=== PATIENT | female | born 1930 ===

== ENCOUNTER 2016-11-05 09:00 | Inpatient (IN) | payer MEDICARE ==
[2016-11-05] MEDS ORDERED: Morphine 4 mg/ml ISec IVP STA (09:23)
[2016-11-05] MEDS ORDERED: Sodium Chloride 0.9% 1,000 ML IV SCH (09:30)
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
[2016-11-05 09:52] LABS: BASO # 0.02 K/mm3 (0.0-2.0); BASO % 0.3 % (0.0-3.0); EOS # 0.1 (0.0-0.7); EOS % 1.6 % (1.5-5.0); GRAN # 6.66 (1.4-6.5); GRAN % 83.6 % (50.0-68.0); HEMATOCRIT 38.8 % (36.0-48.0); LYMPH # 0.8 (1.2-3.4); LYMPH % 9.9 % (22.0-35.0); MEAN CELL VOLUME 95.3 fl (80.0-105.0); MEAN CORPUSCULAR HGB CONC 32.5 g/dl (31.0-37.0); MEAN PLATELET VOLUME 10.7 fl (7.0-11.0); MONO # 0.4 (0.1-0.6); MONO % 4.6 % (1.0-6.0); RED CELL DISTRIBUTION WIDTH 14.7 % (11.5-14.5)
[2016-11-05 09:59] LABS: URINE BILIRUBIN NEGATIVE (NEGATIVE); URINE BLOOD TRACE-INTACT (NEGATIVE); URINE GLUCOSE (UA) NEGATIVE (NEGATIVE); URINE KETONE NEGATIVE (NEGATIVE); URINE LEUKOCYTE ESTERASE NEGATIVE Leu/uL (NEGATIVE); URINE PROTEIN 30 mg/dL (<30 mg/dL); URINE UROBILINOGEN 0.2 E.U./dL (<1 E.U./dL)
[2016-11-05 10:00] LABS: ALB/GLOB RATIO 1.3 (1.1-1.8); ALKALINE PHOSPHATASE 66 U/L (38-133); ALT/SGPT 25 U/L (7-56); AST/SGOT 23 U/L (15-39); BILIRUBIN,TOTAL 1.2 mg/dL (0.2-1.3); BLOOD UREA NITROGEN 16 mg/dL (7-21); CALCIUM 9.3 mg/dL (8.4-10.5); CARBON DIOXIDE 24 mmol/L (21-33); CHLORIDE 109 mmol/L (98-107); GFR AFRICAN-AMERICAN > 60; GLUCOSE,RANDOM 116 mg/dL (70-110); POTASSIUM 4.3 mmol/L (3.6-5.0); SODIUM 143 mmol/L (132-148)
[2016-11-05 10:00] LABS: URINE APPEARANCE CLEAR (CLEAR); URINE COLOR YELLOW (YELLOW)
[2016-11-05 10:02] LABS: INR 1.06 (0.93-1.08); PARTIAL THROMBOPLASTIN TIME 28.5 Seconds (23.7-30.8)
[2016-11-05 10:22] LABS: URINE RBC 0 - 2 /hpf (0-2)
[2016-11-05 10:23] LABS: URINE BACTERIA FEW (NEG); URINE EPITHELIAL CELLS 0 - 2 /hpf (0-5)
--- NOTE | 2016-11-05 10:39 | RAD ---
PROCEDURE: Left Hip X-ray Radiographs. HISTORY: lt. hip injury and pain COMPARISON: None. FINDINGS: BONES: Evaluation limited. No external rotation view supplied. Patient likely unable to cooperate for external rotation. Suspect nondisplaced fracture of left femoral neck. Recommend further radiographic evaluation. No other fracture identified. JOINTS: Normal. SOFT TISSUES: Normal. OTHER FINDINGS: None. IMPRESSION: Suspicious for left femoral neck fracture, nondisplaced. Recommend further radiographic evaluation. Consider computed tomography.
--- NOTE | 2016-11-05 10:42 | RAD ---
PROCEDURE: Radiographs of the pelvis. HISTORY: fall with lt. hip pain COMPARISON: None. FINDINGS: BONES: Pelvic Bones: No fracture Hips: Suspect nondisplaced fracture left femoral neck. Evaluation limited. JOINTS: Sacroiliac Joints: Unremarkable. Pubic Symphysis: Unremarkable. OTHER FINDINGS: None. IMPRESSION: Probable nondisplaced fracture left femoral neck. No other fracture identified.
--- NOTE | 2016-11-05 10:52 | RAD ---
PROCEDURE: Left Knee Radiographs. HISTORY: Pain. COMPARISON: None. FINDINGS: BONES: Normal. No fracture. JOINTS: Normal. No osteoarthritis. JOINT EFFUSION: None. OTHER FINDINGS: None. IMPRESSION: Normal radiographs of the left knee.
--- NOTE | 2016-11-05 10:54 | RAD ---
HISTORY: medical clearance COMPARISON: No prior. FINDINGS: LUNGS: Mild peribronchial thickening. No evidence of pneumonia PLEURA: No significant pleural effusion identified, no pneumothorax apparent. CARDIOVASCULAR: Mild cardiomegaly OSSEOUS STRUCTURES: No significant abnormalities. VISUALIZED UPPER ABDOMEN: Normal. OTHER FINDINGS: None. IMPRESSION: Mild peribronchial thickening. No evidence of pneumonia
--- NOTE | 2016-11-05 11:58 | CT ---
PROCEDURE: CT of the left hip without contrast HISTORY: lt. femoral neck fracture, nondisplaced? COMPARISON: TECHNIQUE: CT of the left hip was performed in the axial plane with sagittal and coronal reconstructions. FINDINGS: There is a nondisplaced impacted subcapital fracture of the left hip. This is best seen on coronal image 36. There are no pelvic fractures. There is no soft tissue hematoma or edema. IMPRESSION: Nondisplaced impacted subcapital fracture of the left hip
--- NOTE | 2016-11-05 13:22 | CARD ---
APPROVED REPORT EKG Measurement Heart [id number] <Conclusion> Sinus rhythm with premature atrial complexes Left axis deviation Moderate voltage criteria for LVH, may be normal variant Abnormal ECG
[2016-11-05 14:25] VITALS: BMI 28.3
[2016-11-05] MEDS ORDERED: Pneumococcal 23-Valent Vaccine IM ONE (14:28)
[2016-11-05] MEDS ORDERED: Nitroglycerin 2% Ointment Foilpak UD TOP PRN (16:20)
[2016-11-05] MEDS: Dextrose 5%/0.45% NS 1,000 ML IV SCH (21:45)
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
[2016-11-06] MEDS: Levothyroxine 112 MCG TAB PO SCH (05:22)
[2016-11-06 06:51] LABS: HEMATOCRIT 36.2 % (36.0-48.0); MEAN CELL VOLUME 96.5 fl (80.0-105.0); MEAN CORPUSCULAR HEMOGLOBIN 31.2 pg (25.0-35.0); MEAN CORPUSCULAR HGB CONC 32.3 g/dl (31.0-37.0); MEAN PLATELET VOLUME 11.1 fl (7.0-11.0); RED CELL DISTRIBUTION WIDTH 14.9 % (11.5-14.5); WHITE BLOOD COUNT 8.6 10^3/ul (4.5-11.0)
[2016-11-06] MEDS ORDERED: Aspirin 325 mg EC Tablets PO SCH (10:00)
[2016-11-06] MEDS ORDERED: Propofol 10 mg/ml Inj (20 ML) ONE (13:26)
[2016-11-06] MEDS ORDERED: Labetalol 5 mg/ml Inj 20ML ONE ×2 (13:37→17:21)
--- NOTE | 2016-11-06 13:49 | PN ---
DATE: 11/06/2016 SUBJECTIVE: This 86-year-old female was examined at her bedside. Her case was reviewed with herself, family and her nurse, Marybel Dyer, registered nurse. The patient is awaiting OR for repair of left hip fracture and is being treated for comorbidities including chronic hypertension, hyperlipidemia, hypothyroidism and degenerative arthritis. The patient denies any fever, chills, chest pain, shortness of breath, nausea or vomiting and is in a normal sinus rhythm on a lunchroom monitor. PHYSICAL EXAMINATION: VITAL SIGNS: At present showed temperature 98.9, respirations 20, pulse 58, blood pressure 142/56 with a pulse ox of 98% on room air. HEENT: Head is normocephalic and atraumatic. Eyes: No icterus. Ears: Clear. Throat: Non-injected. NECK: Supple. HEART: Regular. S1 and S2. No pathological rubs, murmurs or gallops. LUNGS: Clear to auscultation. No wheezing. No rhonchi. ABDOMEN: Soft and nontender. No palpable organomegaly. EXTREMITIES: No clubbing, no cyanosis and no edema. SKIN: Without rash. NEUROLOGICAL: Unchanged. PSYCHOLOGICAL: Alert and oriented x3. VASCULAR: Both legs are warm to touch. LABORATORY DATA: Show white count 8600, hemoglobin 11.7, hematocrit 36.2 and platelets are 183,000. PT/INR 1.06. PTT 28.5. Sodium is 143, potassium 4.3, chloride 109, bicarbonate 24, BUN 16, creatinine 0.7 and random blood sugar is 116. Her bilirubin is 1.2, AST 23, ALT 25 and alkaline phosphatase 66. EKG showed normal sinus rhythm with non-specific ST-T wave changes. IMPRESSION: An 86-year-old female status post a slip and fall with a new left hip fracture and comorbidities including chronic hypertension, history of old stroke, history of transient ischemic attacks in the past, also with hyperlipidemia, hypothyroidism, degenerative arthritis and deconditioning. PLAN: At present is to maintain the patient n.p.o. in preparation for OR. She is ordered to receive antiembolism SCDs, mechanical stockings. She is ordered to have physical therapy for evaluation of bedside therapy and postoperative hip repair surgery. She will be maintained on medication including D5 0.9 saline at 70 mL per hour, Ecotrin 81 mg p.o. daily, Colace 100 mg p.o. b.i.d., Cozaar 100 mg p.o. daily, lactulose 20 g p.o. at bedtime p.r.n. constipation, metoprolol tartrate 12.5 mg p.o. b.i.d., Norvasc 5 mg p.o. daily, nitroglycerin to chest wall 1 inch q. 4 hours p.r.n. accelerated hypertension, if systolic blood pressure should be greater than 160 or diastolic blood pressure greater than 100, Os-Alfred with vitamin D 500 mg p.o. daily, Pepcid 20 mg p.o. at bedtime, Percocet 5/325 mg one p.o. q. 6 hours p.r.n. severe pain, Synthroid 112 mcg p.o. daily, Zofran 4 mg IV q. 6 hours p.r.n. nausea or vomiting. She was instructed by myself with beside incentive spirometry, which she performs well. Her diet will be advanced postoperatively by Surgery, Dr. Zendejas, and ultimate plan will be to have social service arrange for a physical therapy rehab near [facility] where the patient and family reside. All of this was explained in detail to the patient, nursing, social service and family, and approximately sixty minutes were spent in the care and management of this patient today. All questions were answered. Elvira Kenney MD MTDD
[2016-11-06] MEDS ORDERED: Bupivacaine 0.5% Inj(30mL) ONE (14:02)
[2016-11-06] MEDS ORDERED: Rocuronium 10 mg/ml (5 ml) ONE (15:08)
[2016-11-06] MEDS ORDERED: Neostigmine Methylsulfate 3mg/3ml Syringe IV ONE (16:21)
[2016-11-06] MEDS ORDERED: Labetalol 5 mg/ml Inj 20ML IVP PRN (16:58)
[2016-11-06] MEDS ORDERED: HYDROmorphone 0.5 mg/0.5 ml ISec IVP PRN (16:58)
[2016-11-06] MEDS ORDERED: Sodium Chloride 0.9% 1,000 ML IV SCH (17:00)
--- NOTE | 2016-11-06 17:04 | PCM.SURG1 ---
Surgeon's Initial Post Op Note - Surgeon's Notes Surgeon: Kiran Zendejas MD Pharmacy Graduate Intern: Halle Nazario PA-C Type of Anesthesia: General Endo Anesthesia Administered By: Lilliam Vail Pre-Operative Diagnosis: Left femoral neck fx Operative Findings: as above Post-Operative Diagnosis: same Operation Performed: Left hip bipolar hemiarthroplasty Specimen/Specimens Removed: femoral head Estimated Blood Loss: EBL {In ML}: 100 Blood Products Given: N/A Drains Used: No Drains Post-Op Condition: Fair Date of Surgery/Procedure: 11/06/16 Time of Surgery/Procedure: 17:04
[2016-11-06] MEDS ORDERED: Labetalol 5 mg/ml Inj 20ML IV ONE (17:23)
[2016-11-06] MEDS ORDERED: HYDROmorphone 0.5 mg/0.5 ml ISec ONE (17:39)
[2016-11-06] MEDS ORDERED: HYDROmorphone 0.5 mg/0.5 ml ISec IVP ONE (17:40)
--- NOTE | 2016-11-06 18:15 | RAD ---
PROCEDURE: Left Hip X-ray Radiographs. HISTORY: s/p hip bipolar, pt in PACU COMPARISON: 11/05/2016 FINDINGS: BONES: Status post total left hip arthroplasty. The pelvic ring is intact. No acute displaced fracture or dislocation. JOINTS: Bone alignment is normal SOFT TISSUES: There are postsurgical changes in the periarticular soft tissues. OTHER FINDINGS: None. IMPRESSION: Status post total left hip arthroplasty. No acute complications.
[2016-11-06] MEDS: Oxycodone/Acetaminophen 5/325 mg Tab PO PRN (19:48)
--- NOTE | 2016-11-06 20:37 | OP ---
PROCEDURE DATE: 11/06/2016 PREOPERATIVE DIAGNOSIS: Left hip subcapital femoral neck fracture. POSTOPERATIVE DIAGNOSIS: Left hip subcapital femoral neck fracture. PROCEDURE: Left hip hemiarthroplasty. SURGEON: Brando Zendejas MD FAMILY ASSISTANT: Segre Zavaleta PA-C, the physician payroll and benefits assistant. Ms. Zavaleta was completely present throughout the entire case and assisted in patient positioning, retraction, reduction of the hip as well as wound closure. TYPE OF ANESTHESIA: General. COMPLICATIONS: None. ESTIMATED BLOOD LOSS: 50 mL. IMPLANT: Biomet hemiarthroplasty hip. INDICATION FOR PROCEDURE: This is an 86-year-old female who [place] cruise [place] and [place] injuring the left hip. The patient complained of pain and inability to ambulate. Clinical and radiographic examination was consistent with the left femoral neck fracture. Recommendations were for a left hip hemiarthroplasty once the patient was medically optimized. The risks, benefits and alternatives of the procedure were discussed with the patient and informed consent was obtained. DESCRIPTION OF PROCEDURE: After the surgical site was finally identified in the preoperative holding area, the patient was taken to the operating room and placed supine on the operating table. After administration of general anesthesia, the patient received 2 g of Ancef IV. The patient was positioned in the lateral decubitus position with the left hip up towards the ceiling. Care was taken to make sure all bony prominences and nerves were well padded and protected. Venodyne boot was placed on the nonoperative extremity and the left lower extremity was prepped and draped in the usual sterile fashion. The bony landmarks were identified about the left proximal femur and approximately 10-cm curvilinear incision was made. Soft tissue was dissected sharply down to the fascia. The fascia was incised. Charnley retractor was placed, and at this point, the short external rotators were identified, tied and resected off of the proximal femur. T-type capsulotomy was performed and the hip was dislocated. The femoral head was removed and measured on the back table. At this point, the acetabulum was inspected for any debris or any fractures, satisfied, revision femoral neck resection was performed. At this point, the medullary canal of the proximal femur was reamed and broached sequentially to allow for 8 mm press-fit collared stem. With the trial stem in place, the calcar was planed and a trial neck and head was inserted and the hip was reduced. Hip was taken through range of motion, it was noted to be stable with approximately equal limb lengths. At this point, the hip was dislocated and the trial components were removed. The hip joint was pulse lavaged with antibiotic and saline solution. The bony surfaces were dried and the actual femoral stem was then impacted into place being careful to maintain the proper version. The actual head was then impacted over the stem and once again, the hip was reduced. Again, the hip was taken through range of motion and it was noted to be stable with approximately equal limb lengths. At this point, the hip joint was pulse lavaged with antibiotic saline solution and the capsule was repaired using #1 Vicryl sutures. The short external rotators were repaired using #1 Vicryl suture. The deep fascia was closed using #1 Vicryl suture. Subcutaneous tissue was closed using 0 Vicryl and 2-0 Vicryl suture and the skin was closed using aleyda. A sterile dressing was applied and an abduction pillow was placed. The patient was awakened from anesthesia and taken to the recovery room in stable condition. Brando Zendejas MD
[2016-11-06] MEDS: Dextrose 5%/0.45% NS 1,000 ML IV SCH (22:29)
[2016-11-06] MEDS: ceFAZolin 2 GM in Sodium Chloride 0.9% 100 ML IVPB SCH (22:39)
[2016-11-07] MEDS: ceFAZolin 2 GM in Sodium Chloride 0.9% 100 ML IVPB SCH (06:28)
[2016-11-07] MEDS: Levothyroxine 112 MCG TAB PO SCH (06:28)
[2016-11-07] MEDS: Oxycodone/Acetaminophen 5/325 mg Tab PO PRN ×3 (06:36→21:08)
[2016-11-07 06:48] LABS: BLOOD UREA NITROGEN 14 mg/dL (7-21); CALCIUM 8.2 mg/dL (8.4-10.5); CARBON DIOXIDE 24 mmol/L (21-33); CHLORIDE 105 mmol/L (98-107); GFR AFRICAN-AMERICAN > 60; GLUCOSE,RANDOM 148 mg/dL (70-110); POTASSIUM 3.8 mmol/L (3.6-5.0); SODIUM 137 mmol/L (132-148)
[2016-11-07 06:52] LABS: HEMATOCRIT 32.8 % (36.0-48.0); MEAN CELL VOLUME 95.3 fl (80.0-105.0); MEAN CORPUSCULAR HEMOGLOBIN 30.5 pg (25.0-35.0); MEAN PLATELET VOLUME 10.6 fl (7.0-11.0); RED CELL DISTRIBUTION WIDTH 14.6 % (11.5-14.5); WHITE BLOOD COUNT 9.1 10^3/ul (4.5-11.0)
[2016-11-07] MEDS: Calcium-Vit D 250 mg-125 Units Tab UD PO SCH (09:46)
--- NOTE | 2016-11-07 09:59 | CP.PCM.PN ---
Subjective - Date & Time of Evaluation Date of Evaluation: 11/07/16 Time of Evaluation: 09:57 - Subjective Subjective: Pt awake, alert. Tm 100 VSS L hip: abduction pillow in place NVI distally dressing clean and intact Hg 10.5 POD#1 DVT prophylaxis PT Objective - Vital Signs/Intake and Output Vital Signs (last 24 hours): Temp Pulse Resp BP Pulse Ox 100 F H 93 H 22 160/70 H 94 L 11/07/16 08:56 11/07/16 09:46 11/07/16 06:00 11/07/16 09:46 11/07/16 06:00 Intake and Output: 11/07/16 11/07/16 06:59 18:59 Intake Total 730 0 Output Total 100 125 Balance 630 -125 - Medications Medications: Current Medications Acetaminophen (Tylenol 325mg Tab) 650 mg PO Q6H PRN PRN Reason: Temperature greater than 101 Amlodipine Besylate (Norvasc) 5 mg PO DAILY [facility] Last Admin: 11/07/16 09:46 Dose: 5 mg Aspirin (Aspirin Chewable) 81 mg PO DAILY [facility] Last Admin: 11/07/16 09:41 Dose: 81 mg Atorvastatin Calcium (Lipitor) 10 mg PO HS [facility] Last Admin: 11/06/16 22:25 Dose: 10 mg Calcium/Vitamin D (Oscal-D 250 Mg-125 Units Tab) 1 tab PO DAILY [facility] Last Admin: 11/07/16 09:46 Dose: 1 tab Docusate Sodium (Colace) 100 mg PO BID [facility] Last Admin: 11/07/16 09:42 Dose: 100 mg Enoxaparin Sodium (Lovenox) 40 mg SC Q24H [facility] PRN Reason: Protocol Famotidine (Pepcid) 20 mg PO HS [facility] Last Admin: 11/06/16 22:25 Dose: 20 mg Dextrose/Sodium Chloride (Dextrose 5%/0.45% Ns 1000 Ml) 1,000 mls @ 70 mls/hr IV .[id number] [facility] Last Admin: 11/06/16 22:29 Dose: 70 mls/hr Lactulose (Enulose) 20 gm PO HS PRN PRN Reason: Constipation Levothyroxine Sodium (Synthroid) 112 mcg PO 0600 [facility] Last Admin: 11/07/16 06:28 Dose: 112 mcg Losartan Potassium (Cozaar) 100 mg PO DAILY [facility] Last Admin: 11/07/16 09:43 Dose: 100 mg Metoprolol Tartrate (Lopressor) 12.5 mg PO BID [facility] Last Admin: 11/07/16 09:45 Dose: 12.5 mg Nitroglycerin (Nitro-Bid 2% Oint) 1 ea TOP Q4H PRN PRN Reason: hypertension Ondansetron HCl (Zofran Inj) 4 mg IVP Q6H PRN PRN Reason: Nausea/Vomiting Oxycodone/Acetaminophen (Percocet 5/325 Mg Tab) 1 tab PO Q6H PRN PRN Reason: Pain, severe (8-10) Stop: 11/08/16 14:34 Last Admin: 11/07/16 06:36 Dose: 1 tab - Labs Labs: 11/07/16 06:31 11/07/16 06:31 PT 11.4 Seconds (9.9-11.8) 11/05/16 09:25 INR 1.06 (0.93-1.08) 11/05/16 09:25 APTT 28.5 Seconds (23.7-30.8) 11/05/16 09:25
--- NOTE | 2016-11-07 15:06 | PN ---
SUBJECTIVE: This 86-year-old female was examined at her bedside in the presence of her and her nurse, Marybel Dyer. The patient is status post left hip hemiarthroplasty by Dr. Zendejas on 11/06/2016. Presently, she is out of bed to chair. She is wearing SCD antiembolism stockings and she is eating her lunch. The patient denies any fever, chills, chest pain, shortness of breath and at present is receiving IV fluids and performing incentive spirometry. PHYSICAL EXAMINATION: VITAL SIGNS: T-max today has been 100 with respirations 20, pulse 69, blood pressure 160/70 and awake overnight monitor is showing normal sinus rhythm. Pulse ox is 94% on room air. HEENT: Head is normocephalic, atraumatic. Eyes: No icterus. Ears: Clear. Throat: Non-injected. NECK: Supple. HEART: Regular. S1 and S2. No pathological rubs, murmurs or gallops. LUNGS: Clear to auscultation. ABDOMEN: Soft, nontender. There is no palpable organomegaly. There is no rebound, no guarding, no tenderness. EXTREMITIES: No clubbing, no cyanosis, no edema. She is wearing SCD antiembolism stockings. VASCULAR: Legs warm to touch. LABORATORY DATA: Show white count 9,100, hemoglobin 10.5, hematocrit 32.8, platelets 170,000. Sodium 137, K 3.8, chloride 105, bicarbonate 24, BUN 14, creatinine 0.7, random blood sugar is 148. All liver function testing was normal including bilirubin of 1.2, AST 23, ALT 25, and alk phos 66. IMPRESSION: An 86-year-old female status post slip and fall where she sustained a left hip fracture that has been surgically repaired, now with postoperative anemia, comorbidities of chronic hypertension, hyperlipidemia, degenerative arthritis, hypothyroidism. PLAN: At present is to continue heart healthy soft bland diet. She continues on incentive spirometry, SCD antiembolism stockings and has an order for physical therapy for reconditioning and gait training. Medications will include Synthroid 112 mcg p.o. daily, Percocet 1 tablet p.o. q.6 hours p.r.n. severe pain, Tylenol 650 mg p.o. q.6 hours p.r.n. mild pain, Pepcid 20 mg p.o. at bedtime, Norvasc 5 mg p.o. daily, Lovenox 40 mg subcu q.24, metoprolol tartrate 12.5 mg p.o. b.i.d., Lipitor 10 mg p.o. at bedtime, lactulose 20 g p.o. at bedtime p.r.n. constipation, IV fluids will be lowered to D5 0.45 saline at 40 mL per hour, Cozaar 100 mg p.o. daily, Colace 100 mg p.o. b.i.d., and Ecotrin 81 mg p.o. daily. She is ordered to have hemoglobin, hematocrit in a.m. She is having her wound monitored daily by Dr. Zendejas from orthopedics. Ultimate plan will be for transfer to a rehab center near [facility] were the patient and family reside and all the above was discussed in detail with the patient, nursing, family, and co-consultants. Approximately sixty minutes were spent in the care and management of this patient today. Elvira Kenney MD DMITRI
[2016-11-07] MEDS: Dextrose 5%/0.45% NS 1,000 ML IV SCH (17:16)
[2016-11-07] MEDS: Enoxaparin 40 mg Syringe SC SCH (17:19)
--- NOTE | 2016-11-07 20:02 | CP.PCM.PN ---
Subjective - Date & Time of Evaluation Date of Evaluation: 11/07/16 Time of Evaluation: 20:02 - Subjective Subjective: draft constipationx 4 days Objective - Vital Signs/Intake and Output Vital Signs (last 24 hours): Temp Pulse Resp BP Pulse Ox 100 F H 69 22 140/62 94 L 11/07/16 08:56 11/07/16 17:17 11/07/16 06:00 11/07/16 17:17 11/07/16 06:00 Intake and Output: 11/07/16 11/08/16 18:59 06:59 Intake Total 240 Output Total 125 Balance 115 - Medications Medications: Current Medications Acetaminophen (Tylenol 325mg Tab) 650 mg PO Q6H PRN PRN Reason: Temperature greater than 101 Amlodipine Besylate (Norvasc) 5 mg PO DAILY [facility] Last Admin: 11/07/16 09:46 Dose: 5 mg Aspirin (Aspirin Chewable) 81 mg PO DAILY [facility] Last Admin: 11/07/16 09:41 Dose: 81 mg Atorvastatin Calcium (Lipitor) 10 mg PO HS [facility] Last Admin: 11/06/16 22:25 Dose: 10 mg Calcium/Vitamin D (Oscal-D 250 Mg-125 Units Tab) 1 tab PO DAILY [facility] Last Admin: 11/07/16 09:46 Dose: 1 tab Docusate Sodium (Colace) 100 mg PO BID [facility] Last Admin: 11/07/16 17:16 Dose: 100 mg Enoxaparin Sodium (Lovenox) 40 mg SC Q24H [facility] PRN Reason: Protocol Last Admin: 11/07/16 17:19 Dose: 40 mg Famotidine (Pepcid) 20 mg PO HS [facility] Last Admin: 11/06/16 22:25 Dose: 20 mg Dextrose/Sodium Chloride (Dextrose 5%/0.45% Ns 1000 Ml) 1,000 mls @ 40 mls/hr IV .Q24H [facility] Last Admin: 11/07/16 17:16 Dose: 40 mls/hr Lactulose (Enulose) 20 gm PO HS PRN PRN Reason: Constipation Levothyroxine Sodium (Synthroid) 112 mcg PO 0600 [facility] Last Admin: 11/07/16 06:28 Dose: 112 mcg Losartan Potassium (Cozaar) 100 mg PO DAILY [facility] Last Admin: 11/07/16 09:43 Dose: 100 mg Metoprolol Tartrate (Lopressor) 12.5 mg PO BID [facility] Last Admin: 11/07/16 17:17 Dose: 12.5 mg Nitroglycerin (Nitro-Bid 2% Oint) 1 ea TOP Q4H PRN PRN Reason: hypertension Ondansetron HCl (Zofran Inj) 4 mg IVP Q6H PRN PRN Reason: Nausea/Vomiting Oxycodone/Acetaminophen (Percocet 5/325 Mg Tab) 1 tab PO Q6H PRN PRN Reason: Pain, severe (8-10) Stop: 11/08/16 14:34 Last Admin: 11/07/16 13:30 Dose: 1 tab - Labs Labs: 11/07/16 06:31 11/07/16 06:31 PT 11.4 Seconds (9.9-11.8) 11/05/16 09:25 INR 1.06 (0.93-1.08) 11/05/16 09:25 APTT 28.5 Seconds (23.7-30.8) 11/05/16 09:25
[2016-11-07] MEDS ORDERED: Magnesium Hydroxide Susp 30 ml UD PO STA (20:03)
[2016-11-08] MEDS: Levothyroxine 112 MCG TAB PO SCH (05:59)
[2016-11-08] MEDS: Oxycodone/Acetaminophen 5/325 mg Tab PO PRN (05:59)
[2016-11-08 06:20] LABS: HEMATOCRIT 29.4 % (36.0-48.0)
[2016-11-08] MEDS: Calcium-Vit D 250 mg-125 Units Tab UD PO SCH (09:25)
[2016-11-08] MEDS: Enoxaparin 40 mg Syringe SC SCH (17:31)
--- NOTE | 2016-11-08 18:25 | PN ---
DATE: 11/08/2016 SUBJECTIVE: This 86-year-old female was examined at her bedside. This case was reviewed with herself, family and nursing. The patient is status post a left hip fracture repair. She stood with physical therapy yesterday and ambulated a few feet with a rolling walker without incident. PHYSICAL EXAMINATION GENERAL: The patient remains alert and oriented and denies any chest pain or shortness of breath. There have been no fever or chills. Her predatory hunter shows a normal sinus rhythm. VITAL SIGNS: Temperature is 99.6, respirations 20, pulse 78, and blood pressure 158/79 with a pulse ox of 94% on room air. HEENT: Head is normocephalic, atraumatic. Eyes: No icterus. Ears, clear. Throat is noninjected. NECK: Supple. HEART: Regular S1 and S2. LUNGS: Clear to auscultation. ABDOMEN: Soft. EXTREMITIES: No edema. SKIN: Without rash. NEUROLOGICAL: Intact. PSYCHOLOGICAL: Alert. VASCULAR: Legs warm to touch. LABORATORY DATA: Hemoglobin is 9.5, hematocrit 29.4. Previously, 10.5, hematocrit 32.8. PT/INR 1.06. PTT 28.5. Sodium 137, potassium 3.8, chloride 105, bicarbonate 24, BUN 14, creatinine 0.7. Random blood sugars 148. All liver function testing was normal including bilirubin 1.2, AST 23, ALT 25, and alkaline phosphatase 66. IMPRESSION: The patient an 86-year-old female, status post left hip fracture repair with comorbidities of deconditioning, chronic hypertension, hyperlipidemia, hypothyroidism, and degenerative arthritis. PLAN: The plan at present is to continue medication including Zofran 4 mg IV q 6 hours p.r.n. nausea vomiting, Tylenol 650 mg p.o. q 6 hours p.r.n. for mild pain or fever greater than 101, Synthroid 112 mcg p.o. daily, Percocet 1 tablet p.o. q 6 hours p.r.n. moderate or severe pain, Pepcid 20 mg p.o. at bedtime, calcium carbonate 1 tablet daily, Norvasc 5 mg p.o. daily, nitroglycerin 1 inch to chest wall q. 4 hours p.r.n. accelerated hypertension, if systolic blood pressure should be greater than 160 or diastolic blood pressure greater than a 100. The patient was given one dose of Chronulac 30 mL p.o. this morning for obstipation. She is receiving Lovenox 40 mg subcu q 24 hours, metoprolol 12.5 mg p.o. b.i.d., Lipitor 10 mg p.o. at bedtime and Cozaar 100 mg p.o. daily, Colace 100 mg p.o. b.i.d. and Ecotrin 81 mg p.o. daily. Now that she is drinking adequately, I will stop her peripheral IV fluid. She is ordered to have a repeat hemoglobin and hematocrit in the a.m. As discussed with her family, she would benefit from iron supplementation, but given her obstipation, we will hold on that for now. The plan is, for this patient, to be transferred to a rehabilitation center in [facility] where she and her family live, when medically cleared by myself and Dr. Zendejas from orthopedics and the family is aware and in agreement with all of the above. Greater than fifty minutes was spent in the care, management and discussion of this patient today. Elvira Kenney MD MTDAline
[2016-11-09] MEDS: Levothyroxine 112 MCG TAB PO SCH (05:28)
[2016-11-09 06:30] LABS: HEMATOCRIT 28.4 % (36.0-48.0)
[2016-11-09] MEDS: Calcium-Vit D 250 mg-125 Units Tab UD PO SCH (09:58)
--- NOTE | 2016-11-09 16:30 | PN ---
DATE: 11/09/2016 SUBJECTIVE: This 86-year-old female was examined at her bedside and her case was reviewed with her nurse, Katalina Chopra. The patient remains in a normal sinus rhythm on the cardiac monitor technician. She denies any chest pain, shortness of breath, fever or chills. She is status post left hip fracture repair surgery and is awaiting physical therapy. PHYSICAL EXAMINATION VITAL SIGNS: Temperature this morning was 100.1, respirations 20, pulse 72, blood pressure 163/68 with a pulse ox of 97% on room air. Monitor shows normal sinus rhythm. HEENT: Head: Normocephalic atraumatic. Eyes: No icterus. NECK: Supple. HEART: Regular S1, S2. LUNGS: Clear. ABDOMEN: Soft. EXTREMITIES: No edema. SKIN: Without rash. NEUROLOGICAL: Intact. PSYCHOLOGICAL: Alert. VASCULAR: Legs warm to touch. Left hip dressing is clean and dry. LABORATORY DATA: Hemoglobin 9.1, hematocrit 28.4. Sodium 137, K 3.8, chloride 105, bicarb 24, BUN 14, creatinine 0.7, random blood sugar is 148. IMPRESSION: This is an 86-year-old female, status post a trip and fall where she sustained a left hip fracture that has now been repaired with comorbidities of chronic hypertension, deconditioning, hyperlipidemia, postoperative anemia, degenerative arthritis, hypothyroidism and postoperative obstipation. PLAN: As discussed with the patient and her nurse, is to proceed with a Fleets enema. The patient will continue on Ecotrin 81 mg p.o. daily, Colace 100 mg p.o. b.i.d., Cozaar 100 mg p.o. daily, D5 of 0.45 saline at 40 mL per hour, Lipitor 10 mg p.o. at bedtime, metoprolol tartrate 25 mg p.o. b.i.d., Lovenox 40 mg subQ q. 24, Norvasc 5 mg p.o. daily, Os-Alfred 1 tablet p.o. daily, Pepcid 20 mg p.o. at bedtime, Synthroid 112 mcg p.o. daily. She is ordered to be out of bed to chair, incentive spirometry. Varner catheter has been removed. Tylenol p.r.n. fever or pain. Social service will be assisting the patient and family with decision for subacute rehab for physical therapy in [place], [place]. All the above was discussed in detail with the patient, family and nursing and greater than fifty minutes were spent in the care management of this patient today. Elvira Kenney MD DMITRI
[2016-11-09] MEDS: Enoxaparin 40 mg Syringe SC SCH (17:31)
[2016-11-09] MEDS: Dextrose 5%/0.45% NS 1,000 ML IV SCH (17:33)
[2016-11-10] MEDS: Levothyroxine 112 MCG TAB PO SCH (05:02)
[2016-11-10 06:52] LABS: HEMATOCRIT 27.5 % (36.0-48.0)
[2016-11-10] MEDS: Calcium-Vit D 250 mg-125 Units Tab UD PO SCH (09:07)
[2016-11-10 11:02] VITALS: BP 150/80; PULSE 68; RESP 22; TEMP 99.1; O2SAT 97
[2016-11-10] MEDS: Enoxaparin 40 mg Syringe SC SCH (13:10)
--- NOTE | 2016-11-10 14:34 | DS ---
FINAL DIAGNOSES: Left hip fracture repaired, chronic hypertension, postoperative anemia, hyperlipidemia, history of urinary frequency, degenerative arthritis, peptic ulcer disease with GERD, hypothyroidism. DISPOSITION: The patient will be ambulance transported to [facility] in [place], [place]. DISCHARGE DIET: 2 g sodium, heart healthy bland. DISCHARGE MEDICATIONS: Ecotrin 81 mg p.o. daily, Cozaar 100 mg p.o. daily, lactulose 20 g p.o. at bedtime, ferrous gluconate 324 mg p.o. t.i.d., Lipitor 10 mg p.o. at bedtime, metoprolol tartrate 25 mg p.o. b.i.d., Lovenox 40 mg subcu q.24, nitro paste to chest wall 1 inch q.4 hours p.r.n. systolic blood pressure greater than 160 or diastolic blood pressure greater than 100, Norvasc 5 mg p.o. daily, calcium carbonate with vitamin D 500 mg p.o. daily, Pepcid 20 mg p.o. at bedtime, Synthroid 112 mcg p.o. daily, and Tylenol 650 mg p.o. q.6 hours p.r.n. pain or temperature greater than 101, incentive spirometry q.1 hour, heart healthy soft bland diet, anti-embolism stockings. SUMMARY: This is a 86-year-old female who was admitted to [facility] after a slip and fall on a local cruise ship where she sustained a left hip fracture that required orthopedic intervention and a left hemiarthroplasty that was completed on her left hip on 11/06/2016. The patient's postoperative course was notable for postoperative anemia and the patient cooperated with physical therapy, out of bed to chair, incentive spirometry and ambulation with walker. PHYSICAL EXAMINATION: VITAL SIGNS: At the time of discharge, temperature was 98.8, respirations 18, pulse 70, and blood pressure 150/70, pulse ox 95% on room air. She was in a normal sinus rhythm on the fire prevention forester. LABORATORY DATA: Hemoglobin was 8.9, hematocrit 27.5. PT/INR 1.06, PTT 28.5. Sodium 137, K 3.8, chloride 105, bicarbonate 24, BUN 14, creatinine 0.7. All liver function testing was normal including bilirubin 1.2, AST 23, ALT 25, and alk phos 67. ASSESSMENT AND PLAN: The patient will be transported to the rehabilitation center in [place], [place]. Her family was present at the bedside for discussion of her discharge plans and all questions were answered. Greater than 50 minutes were spent in the care and management of this patient today including discharge orders that were reviewed with the patient, family, nursing, and social service. Elvira Kenney MD MTDD
== END 2016-11-10 14:09 | DRG 470 ==
LOC: ED 09:00 → ERH 12:28 → 3RNO 13:22 → UNDODISIN 11-06 16:30
PROVIDERS: ADMIT Internal Medicine; ATTEND Internal Medicine
PROC: 0SRS0JA Replacement of Left Hip Joint, Femoral Surface with Synthetic Substitute, Uncemented, Open Approach (ICD-10-PCS; principal; 2016-11-06 13:15)
DX: S72.012A Unspecified intracapsular fracture of left femur, initial encounter for closed fracture (principal); D64.9 Anemia, unspecified; W01.0XXA Fall on same level from slipping, tripping and stumbling without subsequent striking against object, initial encounter; I10 Essential (primary) hypertension; E78.5 Hyperlipidemia, unspecified; E03.9 Hypothyroidism, unspecified; R35.0 Frequency of micturition; M19.90 Unspecified osteoarthritis, unspecified site; K59.00 Constipation, unspecified; K21.9 Gastro-esophageal reflux disease without esophagitis; K27.9 Peptic ulcer, site unspecified, unspecified as acute or chronic, without hemorrhage or perforation; Z86.73 Personal history of transient ischemic attack (TIA), and cerebral infarction without residual deficits; Y93.89 Activity, other specified; Y92.89 Other specified places as the place of occurrence of the external cause; Y99.8 Other external cause status